=== PATIENT | female | born 1980 | race Caucasian/White ===

== ENCOUNTER 2017-04-23 08:00 | Emergency (ER) | payer OTHER ==
[~2017-04-23 08:00] MED LIST: ADVIL200 MG; ALEVE220 MG; ASPIR-LOW81 MG PO; CLOBETASOL PROP15 G1 TP; IBUPROFEN800 M1 PO; MOTRIN800 MG; NORCO 5/325 TAB1 TAB; NORCO 5/325 TAB1 TAB PO; OXYCODONE/APAP PO; PEPCID AC20 MG PO; PERCOCET 5-3251 EACH PO; PERCOCET 5/3251 TAB PO; PRENATAL1 EACH PO; PREVACID15 M2; SYNTHROID75 MC1 PO; TRIPNIP TOP; TUMS200 MG PO; VISTARIL25 M1 PO; ZOFRAN8 M1 PO
[2017-04-23] MEDS ORDERED: NO HOME MEDICATION XX (08:07)
[2017-04-23] MEDS ORDERED: POLYTRIM EYE DR10 M1 OP (08:35)
[2017-04-23] MEDS ORDERED: CEFDINIR300 M1 PO (08:35)
== END 2017-04-23 08:49 ==
LOC: EDMED 08:00
DX: H10.32 Unspecified acute conjunctivitis, left eye (principal)